=== PATIENT | female | born 1960 | race Caucasian/White ===

== ENCOUNTER 2016-12-15 15:54 | Emergency (ER) | payer BC ==
[2016-12-15 16:07] VITALS: BP 159/75; PULSE 69; RESP 17; TEMP 97.5
--- NOTE | 2016-12-15 17:15 | ED ---
Back Pain HPI - General Chief Complaint: Back Pain/Injury Stated Complaint: Back Pain Time Seen by Provider: 12/15/16 17:09 Source: patient, RN notes reviewed Limitations: no limitations - History of Present Illness Initial Comments: 56-year-old female presents emergency Department chief complaint of. Patient states started initially days ago after she states that she had an injury during sexual intercourse. Patient states that she felt pain along her side. Patient states started to get better but was worse today. She states is worse with movement better at rest. She states she has trouble getting up from a sitting position secondary to pain. She states pain is nonradiating denies any bowel, bladder incontinence or retention. Denies any dysuria, hematuria or increased frequency of urination. She has no nausea vomiting diarrhea constipation. She states she did take some aspirin other day which helped her pain. Patient has known drug ALLERGIES. No history of back pain. - Related Data Previous Rx's Medication Instructions Recorded Acetaminophen-Codeine 300-30mg 1 tab PO Q4H PRN #20 tablet 12/15/16 [Tylenol #3] Cyclobenzaprine [Flexeril] 10 mg PO TID PRN #15 tab 12/15/16 Ibuprofen [Motrin] 600 mg PO Q8HR PRN #30 tab 12/15/16 Allergies Allergy/AdvReac Type Severity Reaction Status Date / Time No Known Allergies Allergy Verified 12/15/16 16:33 Review of Systems ROS Statement: Those systems with pertinent positive or pertinent negative responses have been documented in the HPI. ROS Other: All systems not noted in ROS Statement are negative. Past Medical History Past Medical History: No Reported History History of Any Multi-Drug Resistant Organisms: None Reported Past Surgical History: No Surgical Hx Reported Past Psychological History: No Psychological Hx Reported Smoking Status: Current every day smoker Past Alcohol Use History: Occasional Past Drug Use History: None Reported General Exam Limitations: no limitations General appearance: alert, in no apparent distress Head exam: Present: atraumatic, normocephalic, normal inspection Respiratory exam: Present: normal lung sounds bilaterally. Absent: respiratory distress, wheezes, rales, rhonchi, stridor Cardiovascular Exam: Present: regular rate, normal rhythm, normal heart sounds. Absent: systolic murmur, diastolic murmur, rubs, gallop, clicks GI/Abdominal exam: Present: soft, normal bowel sounds. Absent: distended, tenderness, guarding, rebound, rigid Extremities exam: Present: normal inspection, full ROM, normal capillary refill. Absent: tenderness, pedal edema, joint swelling, calf tenderness Back exam: Present: normal inspection, full ROM (Moderate discomfort with range of motion), tenderness (Tenderness along the right upper lumbar paraspinal), paraspinal tenderness, other (Pain with right straight leg raise). Absent: vertebral tenderness Neurological exam: Present: alert, oriented X3, CN II-XII intact, reflexes normal. Absent: motor sensory deficit Course Vital Signs 12/15/16 16:04 Temperature 97.5 F L Pulse Rate 69 Respiratory 17 Rate Blood Pressure 159/75 O2 Sat by Pulse 99 Oximetry Medical Decision Making - Medical Decision Making 56-year-old female presented for low back pain. Patient has a lumbar strain. She does have some muscle spasms noted. Patient was given Flexeril, child according ibuprofen. We discussed stretching, heat and ice and return parameters. Disposition Clinical Impression: Strain of lumbar region Disposition: HOME SELF-CARE Condition: Stable Instructions: Acute Low Back Pain (ED) Additional Instructions: Please return to the Emergency Department if symptoms worsen or any other concerns. Prescriptions: Acetaminophen-Codeine 300-30mg [Tylenol #3] 1 tab PO Q4H PRN #20 tablet PRN Reason: pain Cyclobenzaprine [Flexeril] 10 mg PO TID PRN #15 tab PRN Reason: Muscle Spasm Ibuprofen [Motrin] 600 mg PO Q8HR PRN #30 tab PRN Reason: Pain Referrals: None,Stated [Primary Care Provider] - 1-2 days Time of Disposition: 17:14
== END 2016-12-15 17:30 | disposition home or self-care (01) ==
LOC: EC 15:54
DX: S39.012A Strain of muscle, fascia and tendon of lower back, initial encounter (principal); F17.200 Nicotine dependence, unspecified, uncomplicated; X50.9XXA Other and unspecified overexertion or strenuous movements or postures, initial encounter
CPT/HCPCS: 99283

== ENCOUNTER → 2024-12-14 | Outpatient (CLI) | payer OTHER ==
--- NOTE | 2024-12-14 16:45 | US ---
EXAMINATION TYPE: US transvaginal DATE OF EXAM: 12/14/2024 COMPARISON: NONE CLINICAL INDICATION: Female, 64 years old with history of N93.9 ABNORMAL UTERINE AND VAGINAL BLEEDING , UNSPE; pt had spotting for 1 week starting on 11/30/24. . Tubal done years ago. TECHNIQUE: Transvaginal (TV). Doppler imaging: Not performed. FINDINGS: Date of LMP: 11 years ago EXAM MEASUREMENTS: Uterus: 7.3 x 5.9 x 4.2 cm Endometrial Stripe: 1.6 cm Right Ovary: 3.0 x 2.3 x 1.3 cm Left Ovary: 3.5 x 2.1 x 1.4 cm 1. Uterus: Retroverted wnl 2. Endometrium: appears thickened with cystic areas inside vascular flow extends into the what is th ought to be a mass within the endometrium. Mass measures 25 x 10 mm 3. Right Ovary: ? enlarged for age 4. Left Ovary: ? enlarged for age 5. Bilateral Adnexa: wnl 6. Posterior cul-de-sac: small amount of free fluid IMPRESSION: Endometrial mass concerning for malignancy until proven otherwise. [facility] Jamil, , 12/14/2024 4:43 PM
== END | disposition home or self-care (01) ==
LOC: RADUSWWP 14:52
PROVIDERS: ATTEND Obstetrics & Gynecology
DX: N93.9 Abnormal uterine and vaginal bleeding, unspecified (principal)
CPT/HCPCS: 76830